=== PATIENT | female | born 1980 | race Caucasian/White ===

== ENCOUNTER 2019-08-09 06:00 | Emergency (ER) | payer OTHER ==
[~2019-08-09] VITALS: Ht 157.5 cm; Wt 49.0 kg
[~2019-08-09 06:00] MED LIST: ALBU90OI INH; AZIT250 PO; BENZ100A PO; CYCL10 PO; DOXY100 PO; ETONOGESTREL-E1 EACH; HYDACE5 PO; IBUP600 PO; LEVO-T125 MC1 PO; LEVSOD100; MEDR150I IM; MULVITMINE; ONDA4ODT MM; Percocet 5-3251 EACH PO
== END 2019-08-09 07:08 | disposition home or self-care (01) ==
LOC: ER 06:00
DX: N83.201 Unspecified ovarian cyst, right side (principal); Z88.1 Allergy status to other antibiotic agents; Z79.899 Other long term (current) drug therapy
CPT/HCPCS: 99283

== ENCOUNTER 2019-12-02 17:11 | Emergency (ER) | payer OTHER ==
[~2019-12-02] VITALS: Ht 160 cm; Wt 49.9 kg
== END 2019-12-02 18:46 | disposition home or self-care (01) ==
LOC: ER 17:11
DX: S93.601A Unspecified sprain of right foot, initial encounter (principal); E03.9 Hypothyroidism, unspecified; Z88.1 Allergy status to other antibiotic agents; Z79.899 Other long term (current) drug therapy; W01.0XXA Fall on same level from slipping, tripping and stumbling without subsequent striking against object, initial encounter; X50.1XXA Overexertion from prolonged static or awkward postures, initial encounter; Y92.828 Other wilderness area as the place of occurrence of the external cause
CPT/HCPCS: 73630; 99283-25